=== PATIENT | female | born 1985 | race Caucasian/White ===

== ENCOUNTER 2017-06-25 09:08 | Emergency (ER) | payer MEDICAID, OTHER ==
[~2017-06-25] VITALS: Ht 162.6 cm; Wt 116.0 kg
[~2017-06-25 09:08] MED LIST: LEVO25TA36 PO; Z.0.BCPILL PO
[2017-06-25 09:14] VITALS: BP 133/96; PULSE 86; RESP 16; TEMP 97.8; O2SAT 98
[2017-06-25] MEDS ORDERED: ADDE30TA PO (09:24)
[2017-06-25] MEDS ORDERED: LEVO.125 PO (09:24)
--- NOTE | 2017-06-25 09:33 | PD ---
HPI Chief Complaint: Pain: Acute or Chronic Time Seen by Provider: 09:25 Travel History International Travel<30 days: No Contact w/Intl Traveler<30days: No Traveled to known affect area: No History of Present Illness HPI 32-year-old female presents to the emergency Department with complaint of left ankle pain and swelling since last night after stepping in a hole and twisting her ankle. Denies paresthesias, loss of sensation to the affected extremity. Reports decreased range of motion of her ankle. Has been ambulatory on the affected extremity. Pain radiates into her foot but she denies for pain. Rates the pain 6/10. Describes it as a throbbing sensation. Has not taken any medication to alleviate her symptoms. Has tried icing and elevating the affected extremity. Pain is aggravated with movement, palpation, induration. Dr. Araujo his primary care provider. No known allergies. Denies significant past medical history. Has no other medical complaints. No other modifying factors or associated signs and symptoms. PFSH Past Medical History ADD: Yes Diminished Hearing: No Thyroid Disease: Yes Tetanus Vaccination: > 5 Years Influenza Vaccination: No ?: Not : 1 Para: 1 Past Surgical History Surgical History: No Previous Surgery Section: Yes Social History Alcohol Use: Yes (1-2 GLASSES OF WINE OR BEER DAILY) Tobacco Use: No Substance Use: No Allergies-Medications (Allergen,Severity, Reaction): Coded Allergies: No Known Allergies (Verified Adverse Reaction, Unknown, 06/25/17) Reported Meds & Prescriptions Reported Meds & Active Scripts Active Reported Adderall (Amphetamine-Dextroamphetamine) 30 Mg Tab 30 Mg PO DAILY Avoid late evening doses. Space doses at least 4 to 6 hours if more than once/day dosing. Synthroid (Levothyroxine Sodium) 125 Mcg Tab 125 Mcg PO DAILY Review of Systems Except as stated in HPI: all other systems reviewed are Neg Physical Exam Narrative GENERAL: Well-nourished, well-developed female patient, in no acute distress SKIN: Warm and dry. HEAD: Atraumatic. Normocephalic. EYES: Pupils equal and round. No scleral icterus. No injection or drainage. ENT: Mucosa pink and moist. Airway patent. NECK: Trachea midline. CARDIOVASCULAR: Regular rate. RESPIRATORY: No accessory muscle use. GASTROINTESTINAL: Obese. MUSCULOSKELETAL: Left ankle with point tenderness to the lateral malleolar zone with palpation; edema noted to the lateral aspect; no obvious deformity; without erythema, ecchymosis. Left Lower extremity is supple and nontense with 2 + pedal pulse and sensory intact. No obvious deformities. No clubbing. No cyanosis. NEUROLOGICAL: Awake and alert. Oriented 3. No obvious cranial nerve deficits. Motor grossly within normal limits. Normal speech. PSYCHIATRIC: Appropriate mood and affect; insight and judgment normal. Data Data Last Documented VS Vital Signs Date Time Temp Pulse Resp B/P (MAP) Pulse Ox O2 Delivery O2 Flow Rate FiO2 06/25/17 09:14 97.8 86 16 133/96 (108) 98 Room Air Orders Orders Ankle, Complete (Vft3mat) (06/25/17 09:33) Crutches (06/25/17 09:33) Ibuprofen (Motrin) (06/25/17 09:45) MDM Medical Decision Making Medical Screen Exam Complete: Yes Emergency Medical Condition: Yes Medical Record Reviewed: Yes Differential Diagnosis Sprain, fracture, injury Narrative Course 32-year-old female with left ankle injury. Ibuprofen and left ankle x-ray ordered. 1030: Left ankle x-ray concludes: Ankle X-Ray 06/25/17932 Signed Impressions: Service Date/Time: Sunday, June 25, 2017 09:42 - CONCLUSION: Soft tissue swelling medial and lateral malleoli. Negative for fracture. Follow up if symptoms persist. Dada Segovia MD FACR A copy of the x-ray was provided to the patient. Ankle stirrup splint, Evin bandage, crutches provided for support. Ibuprofen prescribed for home. Instructed patient to follow up with primary care provider. Patient verbalizes understanding and agreement with treatment plan. Patient is medically cleared and stable for discharge. Discussed reasons to return to the emergency department. Patient agrees with treatment plan. The patients vital signs are stable and the patient is stable for outpatient follow-up and treatment. Patient discharged home, stable and in no acute distress. Diagnosis Primary Impression: Left ankle injury Qualified Codes: S99.912A - Unspecified injury of left ankle, initial encounter Referrals: Orthopaedic Surgeon Primary Care Physician Patient Instructions: Ankle Sprain (ED), Crutch Instructions (ED), General Instructions Additional Instructions: Tylenol or ibuprofen as directed and as needed for pain and inflammation Rest, ice, compress, and elevate extremity to decrease pain and inflammation Ankle Brace for support Crutches for support Avoid aggravating activity; increase activity as tolerated Follow-up with primary care provider Follow-up with orthopedics if symptoms persist greater than 7-10 days Return to the emergency department immediately with worsening of symptoms Med/Other Pt SpecificInfo: Prescription(s) given Scripts Ibuprofen (Ibuprofen) 800 Mg Tab 800 MG PO Q6HR Y for PAIN, #30 TAB 0 Refills Prov: Tova Kong 06/25/17 Disposition: 01 DISCHARGE HOME Condition: Stable Tova Kong Jun 25, 2017 09:33
[2017-06-25] MEDS ORDERED: IBUPROFEN 800 MG TAB PO ONE (09:45)
--- NOTE | 2017-06-25 10:09 | RADRPT ---
EXAM DATE/TIME: 06/25/2017 09:42 [facility] COMPARISON: No previous studies available for comparison. INDICATIONS : Left ankle pain/swelling after stepping in a hole & twisting it last night. MEDICAL HISTORY : Thyroid disease. SURGICAL HISTORY : section. ENCOUNTER: Initial ACUITY: 2 days PAIN SCORE: 6/10 LOCATION: Left ankle FINDINGS: Generalized soft tissue swelling medial and lateral malleolus without fracture. Minimal plantar spurring. CONCLUSION: Soft tissue swelling medial and lateral malleoli. Negative for fracture. Follow up if symptoms pers ist. Dada Segovia MD FACR on June 25, 2017 at 10:06 Board Certified Radiologist. This report was verified electronically.
[2017-06-25] MEDS ORDERED: IBUP1TAB7 PO (10:32)
== END 2017-06-25 10:55 | disposition home or self-care (01) ==
LOC: PHEFT 09:08
DX: S99.912A Unspecified injury of left ankle, initial encounter (principal); X50.9XXA Other and unspecified overexertion or strenuous movements or postures, initial encounter
CPT/HCPCS: 73610; 99283; E0113; L1906